=== PATIENT | female | born 1970 | race Caucasian/White ===

== ENCOUNTER 2019-04-28 07:38 | Emergency (ER) | payer SELFPAY ==
[~2019-04-28] VITALS: Ht 157.5 cm; Wt 68.0 kg
[2019-04-28 07:41] VITALS: BP 171/98
--- NOTE | 2019-04-28 07:48 | NUR ---
PT AMBULATED TO BED 11.
--- NOTE | 2019-04-28 08:05 | NUR ---
PATIENT PRESENTS TO ED WITH C/O RIGHT LOWER BACK PAIN ONLY AT NIGHT. PATIENT STATES PAIN OF 0/10 AT THIS TIME. PT REPORTS NO INJURY TO BACK AND NO DIFFICULTY URINATING. PT REPORTS NAUSEA X 1 DAY. DENIES V/D; SKIN IS PINK/WARM/DRY; AAOX4 WITH EVEN AND STEADY GAIT; PT DENIES ANY FEVER, CP, SOB, OR COUGH AT THIS TIME; VSS; PATIENT POSITIONED FOR COMFORT; HOB ELEVATED; BEDRAILS UP X1; BED DOWN. ER MD TO SEE PT. HX: HTN RX: LISINOPRIL NKA
[2019-04-28 08:43] LABS: APPEARANCE,URINE CLEAR (CLEAR); BILIRUBIN,URINE NEGATIVE (NEGATIVE); BLOOD, URINE NEGATIVE (NEGATIVE); COLOR,URINE YELLOW (YELLOW); LEUKOCYTE ESTERASE ,URINE NEGATIVE (NEGATIVE); NITRITE, URINE NEGATIVE (NEGATIVE); PH,URINE 6.5 (5.0-9.0); UGLUCOSE NEGATIVE (NEGATIVE)
[2019-04-28] MEDS ORDERED: KETOROLAC 30 MG/ML VIAL IM ONE (09:00)
--- NOTE | 2019-04-28 09:47 | NUR ---
ER MD COWAN AT BEDSIDE.
--- NOTE | 2019-04-28 09:52 | NUR ---
Patient discharged with v/s stable. Written and verbal after care instructions given and explained. Patient alert, oriented and verbalized understanding of instructions. Ambulatory with steady gait. All questions addressed prior to discharge. ID band removed. Patient advised to follow up with PMD. Rx of ibuprofen and valium given. Patient educated on indication of medication including possible reaction and side effects. Opportunity to ask questions provided and answered.
[2019-04-28 09:55] VITALS: BP 155/93
== END 2019-04-28 09:52 | disposition home or self-care (01) ==
LOC: MED 07:38
DX: M54.9 Dorsalgia, unspecified (principal); I10 Essential (primary) hypertension
CPT/HCPCS: 81003; 81025; 82948; 96372; 99283; J1885

== ENCOUNTER 2023-12-13 14:27 | Emergency (ER) | payer SELFPAY ==
[~2023-12-13] VITALS: Ht 160 cm; Wt 65.8 kg
[2023-12-13 14:49] VITALS: BP 181/99; PULSE 18; RESP 20; TEMP 98.1; O2SAT 98
[2023-12-13 14:57] VITALS: O2SAT 98
[2023-12-13] MEDS: METOCLOPRAMIDE 10 MG TAB PO ONE (15:23)
[2023-12-13] MEDS: LORazepam 0.5 MG TAB PO ONE (15:25)
[2023-12-13] MEDS: KETOROLAC 30 MG/ML VIAL IM ONE (15:32)
[2023-12-13] MEDS: lisinopriL 20 MG TAB PO ONE (15:32)
[2023-12-13 16:43] VITALS: BP 137/72; PULSE 73; RESP 18; TEMP 98.1; O2SAT 98
[2023-12-13] MEDS ORDERED: NAPR-337 PO (16:43)
[2023-12-13] MEDS ORDERED: LISI-951 PO (16:43)
== END 2023-12-13 16:52 | disposition home or self-care (01) ==
LOC: MED 14:27
DX: R51.9 Headache, unspecified (principal); I10 Essential (primary) hypertension; Z79.899 Other long term (current) drug therapy
CPT/HCPCS: 96372; 99284; J1885; J8597

== ENCOUNTER 2024-04-15 09:48 | Emergency (ER) | payer SELFPAY ==
[~2024-04-15] VITALS: Ht 157.5 cm; Wt 65.8 kg
[~2024-04-15 09:48] MED LIST: LISI-951 PO; NAPR-337 PO
[2024-04-15 09:53] VITALS: BP 151/92; PULSE 102; RESP 16; TEMP 98.5; O2SAT 97
[2024-04-15 10:10] VITALS: TEMP 98.5
[2024-04-15] MEDS: IBUPROFEN 600 MG TAB PO ONE (11:13)
[2024-04-15 12:21] VITALS: BP 132/66; PULSE 88; RESP 20; O2SAT 99
== END 2024-04-15 12:21 | disposition home or self-care (01) ==
LOC: MED 09:48
DX: S90.32XA Contusion of left foot, initial encounter (principal); I10 Essential (primary) hypertension; Z79.899 Other long term (current) drug therapy; Z88.8 Allergy status to other drugs, medicaments and biological substances; X58.XXXA Exposure to other specified factors, initial encounter; Y93.89 Activity, other specified; Y92.89 Other specified places as the place of occurrence of the external cause; Y99.8 Other external cause status
CPT/HCPCS: 73630; 99283; Q0092